=== PATIENT | female | born 1970 | race Caucasian/White ===

== ENCOUNTER 2017-02-28 19:52 | Emergency (ER) | payer OTHER ==
[2017-02-28 20:16] VITALS: BP 144/94
== END 2017-02-28 21:52 | disposition left against medical advice (07) ==
LOC: ED 19:52
DX: Z53.21 Procedure and treatment not carried out due to patient leaving prior to being seen by health care provider (principal)

== ENCOUNTER 2018-10-25 17:21 | Emergency (ER) | payer OTHER ==
[2018-10-25 17:38] VITALS: BP 124/93
[2018-10-25] MEDS ORDERED: HYDROcod/ACETAM 5/325 MG TABLET PO STA (18:09)
--- NOTE | 2018-10-25 18:11 | ED Physician Documentation ---
PD HPI LOWER EXT INJURY - Stated complaint Stated Complaint: R ANKLE INJ - Chief complaint Chief Complaint: Trauma Ext - History obtained from History obtained from: Patient - History of Present Illness PD HPI LOW EXT INJURY LOCATION: Right (She had an inversion injury of the right ankle while stepping out of the car at the gas station as prior to arrival with severe pain there. She is not able to walk or bear weight. No other injuries.) Review of Systems Constitutional: reports: Reviewed and negative Cardiac: reports: Reviewed and negative Respiratory: reports: Reviewed and negative PD PAST MEDICAL HISTORY - Past Medical History Cardiovascular: Hypertension Endocrine/Autoimmune: HyPOthyroidism GI: GERD - Past Surgical History /[employer]: Other HEENT: Tonsil/Adenoidectomy - Present Medications Home Medications: Ambulatory Orders Medication Instructions Recorded Confirmed Levothyroxine [Synthroid] 125 mcg PO QDAC 02/28/17 02/28/17 Lisinopril/Hydrochlorothiazide 1 tab PO DAILY 02/28/17 02/28/17 [Lisinopril-Hctz 10-12.5 mg Tab] Omeprazole [PriLOSEC] 20 mg PO DAILY 02/28/17 02/28/17 Hydrocodone/Acetaminophen 1 - 2 each PO Q6H PRN #14 tablet 10/25/18 [Hydrocodon-Acetaminophen 5-325] - Allergies Allergies/Adverse Reactions: Allergies Allergy/AdvReac Type Severity Reaction Status Date / Time No Known Drug Allergies Allergy Verified 10/25/18 17:31 - Social History Does the pt smoke?: Yes Smoking Status: Current every day smoker Does the pt drink ETOH?: Yes Does the pt have substance abuse?: No - Immunizations Immunizations are current?: Yes PD ED PE NORMAL - Vitals Vital signs reviewed: Yes - General General: Alert and oriented X 3, No acute distress - Extremities Extremities: Other (Right leg is without proximal fibular tenderness. She is tender over the lateral malleolus and ATFL with a lot of swelling laterally. There is no medial malleolar tenderness, no foot tenderness.) - Neuro Neuro: Alert and oriented X 3, Normal speech Results - Vitals Vitals: Vital Signs - 24 hr 10/25/18 17:29 Temperature 36.9 C Heart Rate 101 H Respiratory 18 Rate Blood Pressure 124/93 H O2 Saturation 96 Oxygen O2 Source Room air Departure - Departure Disposition: 01 Home, Self Care Clinical Impression: Right ankle sprain Qualifiers: Encounter type: initial encounter Involved ligament of ankle: anterior talofib ular ligament Qualified Code(s): S93.491A - Sprain of other ligament of right ankle, initial encounter Condition: Good Record reviewed to determine appropriate education?: Yes Instructions: ED Sprain Ankle W X Ray Prescriptions: Hydrocodone/Acetaminophen [Hydrocodon-Acetaminophen 5-325] 1 - 2 each PO Q6H PRN #14 tablet PRN Reason: pain Comments: Keep it elevated. Follow-up with your doctor in 1 week if not better. Return if worse. Your blood pressure was elevated today on check into the emergency department. This does not mean that you have hypertension, it is a common phenomenon to come to the emergency department and have elevated blood pressure. I recommend that you see your primary care physician within the week to have it rechecked when you are feeling better. Do not drink or drive while taking narcotic pain medication. Note that many narcotic pain relievers also contain Tylenol/acetaminophen. Please ensure that your total dose of acetaminophen from all sources does not exceed 3 g (3000 mg) per day. You may get constipated while on this medication. Take a stool softener such as Colace twice a day while you are on it. Also add an [id number] laxative such as senna or MiraLAX on any day that you do not have a bowel movement. If you received a narcotic pain medication or sedative while in the emergency department, do not drive for the next 24 hours. Forms: Activity restrictions
--- NOTE | 2018-10-25 18:21 | XRAY Report ---
Reason: pain,swelling, rolled Procedure Date: 10/25/2018 Accession Number: [id number] / [id number] Procedure: XR - Ankle 3 View RT CPT Code: FULL RESULT: EXAM: RIGHT ANKLE RADIOGRAPHY EXAM DATE: 10/25/2018 05:57 PM. CLINICAL HISTORY: Pain,swelling, rolled. COMPARISON: None. TECHNIQUE: 3 views. FINDINGS: Bones: No acute fracture visualized. There is a plantar calcaneal spur. Joints: There may be a small tibiotalar effusion. No subluxation. The ankle mortise is normally aligned. Soft Tissues: There is at least moderate soft tissue swelling. IMPRESSION: No acute osseus abnormality. RADIA
== END 2018-10-25 18:39 | disposition home or self-care (01) ==
LOC: ED 17:21
DX: S93.491A Sprain of other ligament of right ankle, initial encounter (principal); X50.1XXA Overexertion from prolonged static or awkward postures, initial encounter; Y92.524 Gas station as the place of occurrence of the external cause; I10 Essential (primary) hypertension; E78.00 Pure hypercholesterolemia, unspecified
CPT/HCPCS: 73610; 99283; A9270

== ENCOUNTER 2018-11-03 07:27 | Outpatient (CLI) | payer OTHER ==
--- NOTE | 2018-11-03 15:51 | MRI Report ---
Reason: PAIN IN RIGHT ANKLE AND JOINTS OF RIGHT FOOT,UNSPE Procedure Date: 11/03/2018 Accession Number: [id number] / [id number] Procedure: MRI - Ankle RT W/O CPT Code: FULL RESULT: EXAM: RIGHT ANKLE/HINDFOOT MRI WITHOUT CONTRAST EXAM DATE: 11/03/2018 08:25 AM. CLINICAL HISTORY: Pain in right ankle and joints of right foot, unspecified. Right ankle pain after twisting injury. Area of pain marked. Patient stepped in pothole. COMPARISON: ANKLE 3 VIEW RT 10/25/2018 5:49 PM. TECHNIQUE: Multiplanar, multisequence T1-weighted and fluid-sensitive sequences of the ankle/hindfoot without contrast. Other: None. FINDINGS: Bones: Probable nondisplaced 9 mm in height cortical fracture medial talus (image 23 series 901) without definite correlate on the AP view right ankle 10/25/2018. Articular Cartilage: Unremarkable. Ligaments: Complete tear anterior talofibular ligament. Complete tear calcaneofibular ligament. Intact posterior talofibular ligament. Probable intact anterior tibiotalar ligament. Disruption of the posterior tibiotalar ligament. Spring ligament is intact. Talocalcaneal ligament is intact. Probable grade 1 injury deltoid ligament. Distal anterior tibiofibular ligament is intact. Anterior Tendons: The tibialis anterior, extensor hallucis longus, and extensor digitorum longus tendons are unremarkable. Medial Tendons: Posterior tibialis tenosynovitis. Negative for flexor tendon tear. Negative for extensor tendon tear. Lateral Tendons: The peroneus longus tendon is intact. There is a grade 1 tear 2.7 cm in length peroneus brevis tendon at the level of and distal to the lateral malleolus (image 20 series 501). Achilles Tendon: The Achilles tendon is unremarkable. Musculature: No edema or fatty atrophy. Other: Small ankle joint fluid. Small fluid posterior recess ankle joint. Increased fluid medial tibiotalar joint. The contents of the sinus tarsi and tarsal tunnel are unremarkable. No plantar fasciitis. Dorsum lateral midfoot subcutaneous edema. Extensive ankle edema. Edema seen in the pre-Achilles fat pad. IMPRESSION: 1. Complete tear anterior talofibular ligament and calcaneofibular ligament. 2. Possible nondisplaced cortical fracture fragment medial talus 9 mm in height (image 23 series 901). 3. Probable tear posterior tibiotalar ligament. 4. Grade II segmental partial tear peroneus brevis tendon 2.7 cm in length beginning at the level of the lateral malleolus. 5. Posterior tibialis tenosynovitis. RADIA
== END 2018-11-03 07:28 | disposition home or self-care (01) ==
LOC: DI 07:27
PROVIDERS: ATTEND Family Medicine
DX: S93.491A Sprain of other ligament of right ankle, initial encounter (principal); S93.411A Sprain of calcaneofibular ligament of right ankle, initial encounter; S96.811A Strain of other specified muscles and tendons at ankle and foot level, right foot, initial encounter; M65.871 Other synovitis and tenosynovitis, right ankle and foot